=== PATIENT | female | born 1955 ===

== ENCOUNTER 2023-01-24 12:05 | Emergency (ER) | payer OTHER ==
[~2023-01-24] VITALS: Ht 162.6 cm; Wt 104.3 kg
[2023-01-24 12:11] VITALS: BP 136/76
[2023-01-24] MEDS ORDERED: LISI20 PO (12:15)
== END 2023-01-24 12:36 | disposition home or self-care (01) ==
LOC: ER 12:05
DX: Z04.1 Encounter for examination and observation following transport accident (principal); I10 Essential (primary) hypertension; V68.5XXA Driver of heavy transport vehicle injured in noncollision transport accident in traffic accident, initial encounter; Z88.0 Allergy status to penicillin; Z79.899 Other long term (current) drug therapy
CPT/HCPCS: 99283